=== PATIENT | male | born 1975 | race American Indian/Alaskan Native ===

== ENCOUNTER → 2025-11-18 15:52 | Outpatient (REF) | payer OTHER, SELFPAY | LOC: HWRAD 15:52 | PROVIDERS: ATTENDING PHYSICIAN Internal Medicine Rheumatology | DX: M1A.9XX1 Chronic gout, unspecified, with tophus (tophi) (principal); M23.50 Chronic instability of knee, unspecified knee | CPT/HCPCS: 73562; 73565; 73620 ==